=== PATIENT | male | born 1980 | race Two or more races ===

== ENCOUNTER 2019-04-10 20:39 | Emergency (ER) | payer SELFPAY ==
[~2019-04-10] VITALS: Ht 177.8 cm; Wt 77.1 kg
--- NOTE | 2019-04-10 21:06 | NUR ---
RADIOLOGY AT BEDSIDE AT THIS TIME FOR EXAM.
[2019-04-10] MEDS ORDERED: TRAMADOL HCL 50 MG TAB PO ONE (21:10)
--- NOTE | 2019-04-10 21:45 | NUR ---
KRISTINA POST AT BEDSIDE PLACING ULNAR GUTTER SPLINT ON PT.
[2019-04-10 22:34] VITALS: BP 131/96
--- NOTE | 2019-04-10 22:41 | Diagnostic Imaging Report ---
X-RAY RIGHT HAND 3 VIEWS HISTORY: Pain. COMPARISON: None available. FINDINGS: Bones: Acute fifth metacarpal neck fracture with minimal volar angulation. Joints: The joint spaces are well-maintained. Soft tissues: Mild soft tissue swelling about the medial aspect of the hand. IMPRESSION: Acute fifth metacarpal neck fracture with minimal volar angulation. Signed by: Ham Madera DO on 04/10/2019 10:37 PM
== END 2019-04-10 22:35 | disposition home or self-care (01) ==
LOC: ER 20:39
DX: S67.21XA Crushing injury of right hand, initial encounter (principal); W23.0XXA Caught, crushed, jammed, or pinched between moving objects, initial encounter; Y92.810 Car as the place of occurrence of the external cause
CPT/HCPCS: 99283